=== PATIENT | male | born 1980 | race African-American/Black ===

== ENCOUNTER 2020-05-23 17:14 | Emergency (ER) | payer BC ==
[~2020-05-23] VITALS: Ht 182.9 cm; Wt 100.0 kg
[2020-05-23 17:17] VITALS: BP 148/73
[2020-05-23] MEDS ORDERED: metroNIDAZOLE 500 MG TABLET PO ONE (17:30)
[2020-05-23] MEDS ORDERED: cefTRIAXone IM 250 MG VIAL IM ONE (17:30)
[2020-05-23] MEDS ORDERED: DOXYCYCLINE HYCLATE 100 MG TABLET PO ONE (17:30)
[2020-05-23] MEDS ORDERED: DOXY100T PO (17:50)
--- NOTE | 2020-05-23 17:53 | PHYS DOC ---
Past Medical History Past Medical History: No Pertinent History Past Surgical History: Other Additional Past Surgical Histo: URETHERA RECONSTRUCTION,R HAND ORIF Smoking Status: Current Every Day Smoker Additional Information: 0.5 TO 1 PPD Alcohol Use: Occasionally General Adult EDM: Chief Complaint: SEXUALLY TRANSMITTED DISEASE HPI: HPI: Patient is a 40 year old male who presents to the ED today for STD treatment. Patient states he had sex a couple days ago and the condom broke. He is requesting STD treatment Review of Systems: Review of Systems: Constitutional: Denies fever or chills. [] : Concern for STDs denies dysuria. [] Musculoskeletal: Denies back pain or joint pain. [] Integument: Denies rash. [] Neurologic: Denies headache, focal weakness or sensory changes. [] Psychiatric: Denies depression or anxiety. [] Heart Score: Risk Factors: Risk Factors: DM, Current or recent (<one month) smoker, HTN, HLP, family history of CAD, obesity. Risk Scores: Score 0 - 3: 2.5% MACE over next 6 weeks - Discharge Home Score 4 - 6: 20.3% MACE over next 6 weeks - Admit for Clinical Observation Score 7 - 10: 72.7% MACE over next 6 weeks - Early Invasive Strategies Current Medications: Current Medications Medications (Trade) Dose Ordered Sig/Tiffany Start Time Stop Time Status Last Admin Dose Admin Ceftriaxone Sodium (Rocephin Im) 500 mg 1X ONCE 05/23/20 17:30 05/23/20 17:31 DC Doxycycline Hyclate (Vibra-Tab) 100 mg 1X ONCE 05/23/20 17:30 05/23/20 17:31 DC Metronidazole (Flagyl) 2,000 mg 1X ONCE 05/23/20 17:30 05/23/20 17:31 DC Allergies: Allergies: Allergies Coded Allergies Type Severity Reaction Last Updated Verified No Known Drug Allergies 05/23/20 No Physical Exam: PE: Constitutional: Well developed, well nourished, no acute distress, non-toxic arlene earance. [] Abdomen: Bowel sounds normal, soft, no tenderness, no masses, no pulsatile masses. [] Skin: Warm, dry, no erythema, no rash. [] Back: No tenderness, no CVA tenderness. [] Extremities: No tenderness, no cyanosis, no clubbing, ROM intact, no edema. [] Neurologic: Alert and oriented X 3, normal motor function, normal sensory function, no focal deficits noted. [] Psychologic: Affect normal, judgement normal, mood normal. [] Current Patient Data: Vital Signs: Vital Signs Date Time Temp Pulse Resp B/P (MAP) Pulse Ox O2 Delivery O2 Flow Rate FiO2 05/23/20 17:17 96.4 98 16 148/73 (98) 99 Room Air 96.4 EKG: EKG: [] Radiology/Procedures: Radiology/Procedures: [] Course & Med Decision Making: Course & Med Decision Making Pertinent Labs and Imaging studies reviewed. (See chart for details) 40-year-old male patient who presents to the ED today requesting STD treatment after his condom broke. Treatment was provided by new CDC treatment protocol, STD education was also provided. Matias Disclaimer: Matias Disclaimer: This electronic medical record was generated, in whole or in part, using a voice recognition dictation system. Departure Departure Impression: Primary Impression: Concern about STD in male without diagnosis Disposition: 01 DC HOME SELF CARE/HOMELESS Condition: STABLE Referrals: NO PCP (PCP) Follow-up with the health department Patient Instructions: Sexually Transmitted Disease, [id number] Additional Instructions: You were treated for STDs. Complete your antibiotic. Follow-up with the health department as needed. Use protection at all times Scripts Doxycycline Hyclate (DOXYCYCLINE HYCLATE) 100 Mg Tablet 1 TAB PO BID, #14 TAB Prov: ANANDA FLORIAN APRN 05/23/20 ANANDA FLORIAN APRN May 23, 2020 17:53
== END 2020-05-23 18:03 | disposition home or self-care (01) ==
LOC: ER 17:14
DX: A64 Unspecified sexually transmitted disease (principal); Z20.2 Contact with and (suspected) exposure to infections with a predominantly sexual mode of transmission; F17.200 Nicotine dependence, unspecified, uncomplicated; Z98.890 Other specified postprocedural states
CPT/HCPCS: 96372; 99283; J0696